=== PATIENT | female | born 1980 | race Caucasian/White ===

== ENCOUNTER → 2021-03-16 | Outpatient (CLI) | payer OTHER ==
[~2021-03-16] MED LIST: ALBUTEROL1.25 MG/3 INH; PREDNISONE20 MG PO; ZITHROMAX250 MG PO
[2021-03-16 09:20] LABS: RED BLOOD COUNT 4.73 M/UL (4.00-5.10); WHITE BLOOD COUNT 5.4 K/UL (4.5-11.0)
[2021-03-17 07:10] LABS: A/G RATIO 1.5 (1.2-2.2); ALKALINE PHOSPHATASE, S 63 IU/L (44-121); ALT (SGPT) 10 IU/L (0-32); AST (SGOT) 12 IU/L (0-40); BILIRUBIN, TOTAL 0.3 mg/dL (0.0-1.2); BUN 10 mg/dL (6-24); BUN/CREATININE RATIO 13 (9-23); CALCIUM, SERUM 8.7 mg/dL (8.7-10.2); CARBON DIOXIDE, TOTAL 20 mmol/L (20-29); CHLORIDE, SERUM 106 mmol/L (96-106); CHOLESTEROL, TOTAL 145 mg/dL (100-199); CREATININE, SERUM 0.77 mg/dL (0.57-1.00); EGFR IF AFRICN AM 110 (>59); EGFR IF NONAFRICN AM 96 (>59); GLOBULIN, TOTAL 2.7 g/dL (1.5-4.5); GLUCOSE, SERUM 89 mg/dL (65-99); HDL CHOLESTEROL 40 mg/dL (>39); LDL CHOLESTEROL CALC 84 mg/dL (0-99); LDL/HDL RATIO 2.1 ratio (0.0-3.2); POTASSIUM, SERUM 4.2 mmol/L (3.5-5.2); PROTEIN, TOTAL, SERUM 6.7 g/dL (6.0-8.5); SODIUM, SERUM 139 mmol/L (134-144); T. CHOL/HDL RATIO 3.6 ratio (0.0-4.4); TRIGLYCERIDES 113 mg/dL (0-149)
[2021-03-17 08:13] LABS: THYROXINE (T4) 7.2 ug/dL (4.5-12.0); TRIIODOTHYRONINE (T3) 141 ng/dL (71-180); VITAMIN D, 25-HYDROXY 12.3 ng/mL (30.0-100.0)
== END ==
LOC: LAB 08:50
PROVIDERS: Nurse Practitioner
DX: M26.609 Unspecified temporomandibular joint disorder, unspecified side (principal); F41.9 Anxiety disorder, unspecified; H81.10 Benign paroxysmal vertigo, unspecified ear; R53.83 Other fatigue
CPT/HCPCS: 36415; 80053; 80061; 81001; 84436; 84443; 84480; 85025

== ENCOUNTER → 2021-05-21 | Outpatient (CLI) | payer OTHER | LOC: LAB 08:50 | DX: H81.10 Benign paroxysmal vertigo, unspecified ear (principal); F41.9 Anxiety disorder, unspecified; E55.9 Vitamin D deficiency, unspecified; R53.83 Other fatigue; D64.9 Anemia, unspecified; Z01.84 Encounter for antibody response examination; Z20.822 Contact with and (suspected) exposure to COVID-19 | CPT/HCPCS: 36415; 82728; 83540; 83550 ==